=== PATIENT | male | born 1960 | race African-American/Black ===

== ENCOUNTER 2016-12-10 18:42 | Emergency (ER) | payer OTHER ==
[2016-12-10 19:28] VITALS: TEMP 98.6; BMI 31.7
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
[2016-12-10 21:17] VITALS: BP 117/60; PULSE 85
== END 2016-12-10 21:16 | disposition home or self-care (01) ==
LOC: ED 18:42
DX: Z04.1 Encounter for examination and observation following transport accident (principal); V43.62XA Car passenger injured in collision with other type car in traffic accident, initial encounter
CPT/HCPCS: 99283